=== PATIENT | female | born 2000 | race Two or more races ===

== ENCOUNTER 2023-07-07 05:55 | Outpatient (REF) | payer OTHER, SELFPAY ==
--- NOTE | ~2023-07-07 | US_ITS ---
EXAMINATION: US PELVIS CLINICAL INFORMATION: Irregular menses LMP 06/12/2023 COMPARISON: None available. TECHNIQUE: Ultrasound of the pelvis is performed using both transabdominal and transvaginal transducers along with Doppler. Transvaginal imaging is performed due to inadequate visualization transabdominally. FINDINGS: Uterus: The uterus is anteverted and measures 8.6 x 3.3 x 5.8 cm. No focal fibroid. The endometrial thickness is 0.5 cm. Adnexa: Both ovaries are visualized. There is normal color flow to the adnexa. There is no ovarian torsion. Right ovary measures 2.0 x 3.5 x 1.7 cm. Volume 7.4 mL. Left ovary measures 3.9 x 4.1 x 4.2 cm. Volume 35.0 mL. There is a 2.8 x 2.0 x 2.8 cm left ovarian cyst which is possibly hemorrhagic in origin. A 1.6 x 2.1 x 2.5 cm simple paraovarian cyst is also seen. There is a moderate amount of free fluid within both adnexa. US/US pelvic and transvaginal IMPRESSION: 1. Normal uterus and right ovary. 2. 2.8 cm left ovarian cyst which is possibly hemorrhagic in origin. Follow-up in 3 months could be performed. 3. 2.5 cm simple left paraovarian cyst. This is a benign cyst. No follow-up imaging is recommended.
== END 2023-07-07 05:56 | disposition home or self-care (01) ==
LOC: HO.UMASIMG 05:55
PROVIDERS: Visit Provider Nurse Practitioner Women's Health
DX: N92.6 Irregular menstruation, unspecified (principal)
CPT/HCPCS: 76830; 76856

== ENCOUNTER 2023-11-24 06:32 | Outpatient (REF) | payer OTHER, SELFPAY ==
--- NOTE | ~2023-11-24 | US_ITS ---
EXAMINATION: US PELVIS CLINICAL INFORMATION: Follow-up left ovarian cysts. COMPARISON: None available. TECHNIQUE: Ultrasound of the pelvis is performed using both transabdominal and transvaginal transducers along with Doppler. Transvaginal imaging is performed due to inadequate visualization transabdominally. FINDINGS: Uterus: The uterus is anteverted and measures 8.3 x 3.6 x 4.6 cm cm. The double wall endometrial thickness is 3 mm. The uterus is smooth in contour and has normal myometrial echogenicity. No visible fibroid. Adnexa: Both ovaries are visualized and contain follicles. There is a 2.0 x 1.7 x 1.5 cm simple cystic structure contiguous with the left ovary, previously measuring 2.5 x 2.1 x 1.6 cm; no further dedicated follow-up imaging of this finding is indicated. There is normal color flow to the adnexa. No ovarian torsion is suspected. No pelvic ascites or fluid collection is seen. Right ovary measures 2.1 x 2.8 x 1.8 cm. Left ovary measures 4.7 x 3.8 x 1.8 cm. The previously seen, heterogeneous 2.8 x 2.0 x 2.8 cm left ovarian cyst. This is no longer identified, and probably represented a hemorrhagic cyst. US/US pelvic complete IMPRESSION: No suspicious ultrasonographic finding. Electronically signed by: Dain Graham MD 11/24/2023 03:55 PM EDT
== END 2023-11-24 06:33 | disposition home or self-care (01) ==
LOC: HO.UMASIMG 06:32
PROVIDERS: Visit Provider Nurse Practitioner Women's Health
DX: N83.202 Unspecified ovarian cyst, left side (principal)
CPT/HCPCS: 76856